=== PATIENT | male | born 1970 | race Caucasian/White ===

== ENCOUNTER 2019-04-02 19:06 | Emergency (ER) | payer OTHER ==
[2019-04-02] MEDS ORDERED: Acetaminophen/HYDROcodone 325-5 MG Tab PO ONE ×2 (19:07→21:11)
[2019-04-02] MEDS ORDERED: Lidocaine 1% with EPINEPHrine 1:100,000 10 ML MDV INJECT ONE (19:07)
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
== END 2019-04-02 21:50 | disposition home or self-care (01) ==
LOC: FB.ED 19:06
DX: S01.21XA Laceration without foreign body of nose, initial encounter (principal); S09.90XA Unspecified injury of head, initial encounter; E66.9 Obesity, unspecified; I10 Essential (primary) hypertension; Z68.38 Body mass index [BMI] 38.0-38.9, adult; F41.9 Anxiety disorder, unspecified; Z79.82 Long term (current) use of aspirin; Z79.899 Other long term (current) drug therapy; Z88.2 Allergy status to sulfonamides; V86.99XA Unspecified occupant of other special all-terrain or other off-road motor vehicle injured in nontraffic accident, initial encounter
CPT/HCPCS: 12011; 70450; 70486; 99283; A9270

== ENCOUNTER 2022-04-18 06:51 | Emergency (ER) | payer OTHER ==
[2022-04-18] MEDS ORDERED: Sodium Chloride 0.9% 1,000 ML IV ONE (07:03)
[2022-04-18] MEDS ORDERED: Sodium Chloride 0.9% 10 ML Syringe FLUSH PRN (07:03)
[2022-04-18 07:16] LABS: ESTIMATED GFR 104 mL/min (>60)
[2022-04-18] MEDS ORDERED: Morphine 4 MG/ML VIAL IVPUSH ONE (07:17)
[2022-04-18] MEDS ORDERED: Morphine 4 MG/ML VIAL ONE (07:19)
[2022-04-18] MEDS ORDERED: Iopamidol 755 Mg/ML 100 ML Bottle IV ONE (08:01)
== END 2022-04-18 09:40 | disposition home or self-care (01) ==
LOC: FB.ED 06:51
DX: S39.91XA Unspecified injury of abdomen, initial encounter (principal); S19.9XXA Unspecified injury of neck, initial encounter; I10 Essential (primary) hypertension; E66.9 Obesity, unspecified; Z88.2 Allergy status to sulfonamides; Z79.82 Long term (current) use of aspirin; Z79.899 Other long term (current) drug therapy; V89.2XXA Person injured in unspecified motor-vehicle accident, traffic, initial encounter; Y92.410 Unspecified street and highway as the place of occurrence of the external cause
CPT/HCPCS: 36415; 70450; 71260; 72125; 74177; 80053; 80307; 83690; 83735; 85025; 85610; 85730; 96361; 96374; 99283; 99285-25; J2270; J3490; J7030; Q9967